=== PATIENT | male | born 1995 | race Caucasian/White ===

== ENCOUNTER 2022-09-22 11:07 | Emergency (ER) | payer BC ==
[~2022-09-22] VITALS: Wt 68.0 kg
[2022-09-22] MEDS ORDERED: Motrin,Rufen800 MG PO (13:22)
== END 2022-09-22 13:26 | disposition home or self-care (01) ==
LOC: ED 11:07
DX: S93.401A Sprain of unspecified ligament of right ankle, initial encounter (principal); W01.0XXA Fall on same level from slipping, tripping and stumbling without subsequent striking against object, initial encounter; Y93.89 Activity, other specified; Y92.89 Other specified places as the place of occurrence of the external cause; Y99.8 Other external cause status